=== PATIENT | female | born 1930 | race Caucasian/White ===

== ENCOUNTER → 2017-04-23 | Outpatient (CLI) | payer OTHER, MEDICARE ==
[~2017-04-23] MED LIST: AFLURIA 2045 MCG/0.4; AMPYRA10 MG PO; APAP650 PO; ASPIRIN EC81 M1 PO; BENTYL20 MG PO; CALTRATE-600 W1 EACH PO; CARAFATE 1 GM TA1 G1 GT; CENTRUM SILVER1 EAC1 PO; CORAL CALCIUM1 EAC4 PO; COZAAR 25 MG TA25 M2 PO; COZAAR 50 MG TA50 M1; COZAAR 50 MG TA50 M1 PO; CURCUMIN1 GM MC; CURCUMIN1 GM PO; DICLOFENAC; GLUCOSAMINE1000 MG; GOLYTELY4000 M1 GT; IBUPROFEN 200200 M1 PO; LOPRESSOR; LOVASTATIN 20 M20 MG PO; MIRALAX255 GM PO; NISOLDIPINE8.5 MG; OMEGA-3 + VITA200 ML; PAIN & FEVER325 MG PO; PERCOCET 5-3251 EACH; PNEUMOVAX25 MCG/0.5; PRAVASTATIN SOD20 MG PO; PRESERVISION A1 EAC1 PO; PRESERVISION A1 EAC2 PO; PRILOSEC 20 MG20 MG PO; PRILOSEC20 MG PO; PRILOSEC40 MG PO; TOPROL XL25 MG PO; TRAMADOL 50 MG50 MG PO; ULTRAM 50MG TAB50 MG PO; VITAMIN D31000 UNI2 PO; VITAMIN D35000 UNI1; VOLTAREN GEL 1100 G1; [UNRECOGNIZED DRUG - OTHER] PO
== END ==
LOC: PUL 13:06
DX: M48.061 Spinal stenosis, lumbar region without neurogenic claudication (principal); R09.02 Hypoxemia

== ENCOUNTER → 2017-04-30 | Outpatient (CLI) | payer OTHER, MEDICARE | LOC: MRI 10:05 | DX: M47.895 Other spondylosis, thoracolumbar region (principal); M48.061 Spinal stenosis, lumbar region without neurogenic claudication ==

== ENCOUNTER → 2017-09-23 | Outpatient (CLI) | payer OTHER, MEDICARE ==
[~2017-09-23] VITALS: Ht 137.2 cm; Wt 43.1 kg
[~2017-09-23] MED LIST changes: +CYMBALTA30 MG PO; +OMEPRAZOLE 20 M20 M1 PO
--- NOTE | ~2017-09-23 | P ---
[facility] [place] [address] PROCEDURE REPORT Name: CEZAR BOSTON Room #: REG [facility]#: [id number] Admission: 09/23/17 Attend Phys: Sesar Childress MD Discharge: Date of : [birth year] Report #: [id number] THIS REPORT FOR: //name// CC: Sesar Childress DATE OF SERVICE: 09/23/2017 BRIEF HISTORY: The patient is an 87-year-old woman who complains of dry mouth and also dysphagia. She says she cannot eat a lot of meat. She also reports she is having troubles with her dentures. PREOPERATIVE DIAGNOSES: Dysphagia and dry mouth. POSTOPERATIVE DIAGNOSES: 1. A large hiatus hernia. 2. 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 3. Tertiary contractions. MEDICATIONS: Deep sedation with propofol per anesthesia. SPECIMEN: None. ESTIMATED BLOOD LOSS: None. PROCEDURE: EGD and Savary dilation over a guidewire. FINDINGS: Prior to propofol sedation, the procedure of upper endoscopy was reviewed with the patient as well as potential risks and its complications. She indicates she understands and desires to proceed. DESCRIPTION OF PROCEDURE: With the patient in left lateral decubitus position, the BeMoi video endoscope was inserted in the cervical esophagus under direct vision without difficulty. Examination of this organ through its entire length revealed normal esophageal mucosa. However, it was noted she had a corkscrew esophagus. There was also significant foreshortened esophagus secondary to her large hiatus hernia. The gastroesophageal junction was identified about 25 cm. Beyond this was a large hiatus hernia that measured 10 cm with the diaphragmatic hiatus estimated to be at about 35 cm. The mucosa in the hernia was unremarkable. The scope was retroflexed easily in the hiatus hernia. No mass lesions were seen. Scope was advanced into the distal stomach, was examined on end view as well as retroflexed views. She has a prior history of ulcer disease, but no ulcers were seen on today's examination. Upon retroflexion, the hiatus hernia was seen. No other abnormalities were identified. The pylorus, duodenal bulb and postbulbar duodenal sweep were all inspected and noted to be [facility] [address] [place] [address] PROCEDURE REPORT Name: CEZAR BOSTON Room #: REG [facility].#: [id number] Admission: 09/23/17 Attend Phys: Sesar Childress MD Discharge: Date of : [birth year] Report #: [id number] within normal limits. At that point, the scope was slowly withdrawn and careful circumferential views confirmed the above finding. As we withdrew the scope, a guidewire was inserted through the biopsy channel and scope was withdrawn over the wire. Subsequently, she was dilated with passage of a 48-Armenian Savary dilator over the guidewire. There was no resistance. CONDITION OF THE PATIENT UPON DISCHARGE: Following procedure, the patient drowsy, aroused and conversant and will be discharged home when fully ambulatory. INSTRUCTIONS TO THE PATIENT AND FAMILY AT THE TIME OF DISCHARGE: The patient has had some dysphagia, an obstructing lesion or stricture was not seen. 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 I also might add that there are no ulcers, erosions or evidence of esophagitis or [place]as esophagus. At this point in life, she is not likely a candidate for surgical repair of her hiatus hernia. Would treat symptomatically at this point in time. She is to continue her PPI. Her dry mouth may be on the basis of medications. She will return to care of Dr. Sesar Cummings, return to see me as needed. If she has benefit from the dilation, that can be repeated in the future on an as needed basis. <ELECTRONICALLY SIGNED> By: Sesar Childress MD 09/23/17 1712 1120 1418 Sesar Childress MD /nt
== END | disposition home or self-care (01) ==
LOC: GI 09:27
DX: K44.9 Diaphragmatic hernia without obstruction or gangrene (principal); K22.4 Dyskinesia of esophagus; F32.9 Major depressive disorder, single episode, unspecified; E78.5 Hyperlipidemia, unspecified; K21.9 Gastro-esophageal reflux disease without esophagitis; Z90.710 Acquired absence of both cervix and uterus; Z98.890 Other specified postprocedural states; D64.9 Anemia, unspecified; M19.90 Unspecified osteoarthritis, unspecified site; Z86.73 Personal history of transient ischemic attack (TIA), and cerebral infarction without residual deficits
CPT/HCPCS: 62110; 62900

== ENCOUNTER 2018-04-20 12:19 | Inpatient (IN) | payer OTHER, MEDICARE ==
[~2018-04-20] VITALS: Ht 139.7 cm; Wt 46.3 kg
--- NOTE | ~2018-04-20 | EKG ---
[address] [address] ELECTROCARDIOGRAM REPORT Name: CEZAR BOSTON Room #: 210-P ADM IN M.R.#: [id number] Admission: 04/20/18 Attend Phys: Eduardo William MD Discharge: Date of : [birth year] Report #: [id number] THIS REPORT FOR: //name// 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 : 1930 Requested By: Eduardo William Order Number: [id number] MD: Parag Sanchez Measurements Intervals [place] Rate: 88 P: 50 ID: [id number] QRS: -32 QRSD: 83 T: -66 QT: 418 QTc: 506 Interpretive Statements Sinus rhythm Inferior infarct, age indeterminate Probable anteroseptal infarct, age indeterminate Prolonged QT interval Compared to ECG 04/20/2018 12:47:24 no significant change was found Electronically Signed On 04-21-2018 8:27:29 TYPE INSPECTOR by Parag Sanchez [email or web address] <ELECTRONICALLY SIGNED> By: Parag Sanchez MD, [facility] [id number] 1 1 Parag Sanchze MD, [facility] /EPI
--- NOTE | ~2018-04-20 | 2DMMODE ---
[facility] [address] [place] [address] 2 D/M-MODE ECHOCARDIOGRAM Name: DARVINCEZAR Room #: 210-P ADM IN M.R.#: [id number] Admission: 04/20/18 Attend Phys: Eduardo William MD Discharge: Date of : [birth year] Date of Service: 04/21/18 1243 Report #: [id number] THIS REPORT FOR: //name// APPROVED REPORT Study performed: 04/21/2018 11:39:00 EXAM: Comprehensive 2D, Doppler, and color-flow Echocardiogram Patient Location: In-Patient Room #: 210 Status: routine BSA: 1.32 HR: 69 bpm BP: 149/83 mmHg Other Information Study Quality: Good Indications Dyspnea bilateral PE's 2D Dimensions RVDd: 32.88 mm IVSd: 14.59 (7-11mm) LVOT Diam: 18.50 (18-24mm) LVDd: 26.60 mm PWd: 13.52 (7-11mm) Ascending Ao: 28.78 (22-36mm) LVDs: 19.52 (25-40mm) Aortic Root: 28.05 mm IVC: 12.00 mm Volumes Left Atrial Volume (Systole) Single Plane 4CH: 57.73 mL Single Plane 2CH: 45.04 mL LA ESV Index: 42.00 mL/m2 Aortic Valve AoV Peak Ariel.: 1.56 m/s AO Peak Gr.: 9.69 mmHg AI Vmax: 3.72 m/s AI Dodge: 2.51 m/s2 AI PHT: 429.17 ms Mitral Valve E/A Ratio: 1.3 MV Decel. Time: 155.02 ms [facility] [address] [place] [address] 2 D/M-MODE ECHOCARDIOGRAM Name: CEZAR BOSTON Room #: 210-P ADM IN [facility].#: [id number] Admission: 04/20/18 Attend Phys: Eduardo William MD Discharge: Date of : [birth year] Date of Service: 04/21/18 1243 Report #: [id number] MV E Max Ariel.: 0.82 m/s MV A Ariel.: 0.65 m/s MV PHT: 44.96 ms IVRT: 129.18 ms Pulmonary Valve PV Peak Ariel.: 0.63 m/s PV Peak Gr.: 1.62 mmHg Pulmonary Vein P Vein S: 0.62 m/s P Vein A: 0.48 m/s P Vein D: 0.45 m/s P Vein A Dur.: 101.5 msec P Vein S/D Ratio: 1.38 Tricuspid Valve TR Peak Ariel.: 3.28 m/s RAP Estimate: 5.00 mmHg TR Peak Gr.: 43.13 mmHg PA Pressure: 48.00 mmHg Left Ventricle The left ventricle is normal size. There is normal LV segmental wall motion. Moderate concentric left ventricular hypertrophy. The left ventricular systolic function is normal. The left ventricular ejection fraction is within the normal range. LVEF is 60-65%. Moderate diastolic dysfunction is present (pseudonormal filling). Right Ventricle The right ventricle is normal size. The right ventricular systolic function is normal. Atria Left atrium is mildly dilated. The right atrium size is normal. Aortic Valve Aortic valve is mildly calcified, trileaflet. Mild aortic regurgitation. There is no aortic valvular stenosis. Mitral Valve Mild mitral annular calcification. Mild mitral regurgitation. No evidence of mitral valve stenosis. Tricuspid Valve The tricuspid valve is normal in structure. Mild tricuspid regurgitation. PAP is estimated at 48 mmHg. [facility] [address] [place] [address] 2 D/M-MODE ECHOCARDIOGRAM Name: [place], [place] Room #: [facility] IN M.R.#: [id number] Admission: 04/20/18 Attend Phys: Eduardo William MD Discharge: Date of : [birth year] Date of Service: 04/21/18 1243 Report #: [id number] Pulmonic Valve The pulmonary valve is normal in structure. Mild pulmonic regurgitation. Great Vessels The aortic root is normal in size. IVC is normal in size and collapses >50% with inspiration. Pericardium There is no pericardial effusion. <Conclusion> The left ventricular systolic function is normal. There is normal LV segmental wall motion. EF 60-65% Moderate concentric left ventricular hypertrophy. Moderate diastolic dysfunction Aortic valve is mildly calcified, trileaflet. Mild aortic regurgitation, no stenosis Mild mitral annular calcification. Mild mitral regurgitation. Mild tricuspid regurgitation. Pulmonary artery pressure estimated at 48 mmHg. There is no pericardial effusion. <ELECTRONICALLY SIGNED> By: Parag Sanchez MD, FACC 04/21/18 1243 1243 1243 Parag Sanchez MD, FACC /INF
--- NOTE | ~2018-04-20 | EKG ---
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 : 1930 Requested By: Kentrell Lou Order Number: [id number] MD: Seven Dover Measurements Intervals [place] Rate: 87 P: -21 AK: 133 QRS: -36 QRSD: 92 T: -61 QT: 383 QTc: 461 Interpretive Statements Sinus rhythm LVH with secondary repolarization abnormality Inferior infarct, age indeterminate Probable anterior infarct, age indeterminate Baseline wander in lead(s) V1 Compared to ECG 07/17/2016 10:53:49 Left ventricular hypertrophy now present Early repolarization now present Myocardial infarct finding still present Electronically Signed On 04-20-2018 20:52:52 CELEBRITY MANAGER by Seven Dover [email or web address] <ELECTRONICALLY SIGNED> By: Seven Dover MD 04/20/182051 1247 46 Seven Dover MD /EPI
[2018-04-20 12:20] VITALS: BP 139/70
[2018-04-20 14:18] LABS: ABSOLUTE NEUTROPHILS 11.1 thou/uL (1.4-8.2); BASOPHILS 0.1 % (0.0-2.0); HEMATOCRIT 33.8 % (37.0-47.0); HEMOGLOBIN 11.3 gm/dL (12.0-15.0); LYMPHOCYTES 5.4 % (24.0-44.0); MCH 31.3 pg (26.0-34.0); MCHC 33.4 g/dL (28.0-37.0); MCV 93.9 fL (80.0-100.0); PLATELET COUNT 218 thou/uL (150-400); POLYS 85.5 % (36.0-66.0); RDW 12.6 % (10.5-14.5)
[2018-04-20 14:26] LABS: CALCIUM 9.2 mg/dL (8.5-10.1); CREATININE 1.2 mg/dL (0.6-1.0)
[2018-04-20 14:35] LABS: TROPONIN-I 0.18 ng/mL (<0.06)
[2018-04-20 16:49] LABS: APTT 29.6 Seconds (24.5-32.8); PROTIME 10.9 Seconds (9.3-11.4)
[2018-04-20 17:22] VITALS: BP 143/94
[2018-04-20 19:18] VITALS: BP 137/72
[2018-04-20 23:39] VITALS: BP 111/62
[2018-04-21 03:52] VITALS: BP 139/82
[2018-04-21 04:03] LABS: ABSOLUTE NEUTROPHILS 6.8 thou/uL (1.4-8.2); BASOPHILS 0.1 % (0.0-2.0); HEMATOCRIT 31.9 % (37.0-47.0); HEMOGLOBIN 10.5 gm/dL (12.0-15.0); LYMPHOCYTES 10.5 % (24.0-44.0); MCH 31.3 pg (26.0-34.0); MCHC 33.1 g/dL (28.0-37.0); MCV 94.6 fL (80.0-100.0); MONOCYTES 10.8 % (1.0-8.0); PLATELET COUNT 203 thou/uL (150-400); POLYS 78.6 % (36.0-66.0); RBC 3.37 mil/uL (4.20-5.00); RDW 12.5 % (10.5-14.5); WBC 8.7 thou/uL (4.0-11.0)
[2018-04-21 04:22] LABS: CALCIUM 8.5 mg/dL (8.5-10.1); CREATININE 1.3 mg/dL (0.6-1.0); MAGNESIUM 1.8 mg/dL (1.8-2.4); POTASSIUM 3.7 mmol/L (3.5-5.1); TROPONIN-I 0.14 ng/mL (<0.06)
[2018-04-21 08:17] VITALS: BP 149/83
[2018-04-21 12:03] VITALS: BP 131/71
[2018-04-21 14:59] VITALS: BP 146/81
[2018-04-21 19:28] VITALS: BP 135/81
[2018-04-21] MEDS ORDERED: ZYPREXA2.5 MG PO (21:08)
[2018-04-21 22:04] LABS: URINE BILIRUBIN NEGATIVE (Negative); URINE BLOOD NEGATIVE (Negative); URINE CLARITY CLEAR; URINE COLOR YELLOW; URINE GLUCOSE-RANDOM* NEGATIVE (Negative); URINE KETONES NEGATIVE (Negative); URINE LEUKOCYTES-REFLEX NEGATIVE (Negative); URINE NITRITE-REFLEX NEGATIVE (Negative); URINE PROTEIN (DIPSTICK) NEGATIVE (Negative); URINE SPECIFIC GRAVITY 1.015 (1.005-1.035); URINE UROBILINOGEN 0.2 E.U./dl (0.2-1.0)
[2018-04-22 03:29] LABS: HEMATOCRIT 29.1 % (37.0-47.0); HEMOGLOBIN 9.9 gm/dL (12.0-15.0); MCH 31.8 pg (26.0-34.0); MCHC 33.9 g/dL (28.0-37.0); MCV 93.9 fL (80.0-100.0); RBC 3.1 mil/uL (4.20-5.00); RDW 12.4 % (10.5-14.5); WBC 7.2 thou/uL (4.0-11.0)
[2018-04-22 03:41] LABS: CALCIUM 9.2 mg/dL (8.5-10.1); CREATININE 1.2 mg/dL (0.6-1.0); MAGNESIUM 1.7 mg/dL (1.8-2.4); POTASSIUM 3.3 mmol/L (3.5-5.1)
[2018-04-22 03:52] VITALS: BP 143/77
[2018-04-22 09:05] LABS: MAGNESIUM 1.8 mg/dL (1.8-2.4); POTASSIUM 4.1 mmol/L (3.5-5.1)
[2018-04-22 10:38] VITALS: BP 119/71
[2018-04-22 15:20] VITALS: BP 119/69
[2018-04-22 17:53] VITALS: BP 119/69
[2018-04-22 19:55] VITALS: BP 141/75
[2018-04-22 21:58] LABS: URINE BILIRUBIN NEGATIVE (Negative); URINE BLOOD NEGATIVE (Negative); URINE CLARITY CLEAR; URINE COLOR YELLOW; URINE GLUCOSE-RANDOM* NEGATIVE (Negative); URINE KETONES NEGATIVE (Negative); URINE LEUKOCYTES TRACE (Negative); URINE NITRITE NEGATIVE (Negative); URINE PROTEIN (DIPSTICK) TRACE (Negative); URINE UROBILINOGEN 0.2 E.U./dl (0.2-1.0)
[2018-04-23 04:08] LABS: HEMATOCRIT 30.1 % (37.0-47.0); HEMOGLOBIN 10.2 gm/dL (12.0-15.0); MCH 31.7 pg (26.0-34.0); MCHC 33.9 g/dL (28.0-37.0); MCV 93.7 fL (80.0-100.0); RBC 3.22 mil/uL (4.20-5.00); RDW 12.4 % (10.5-14.5); WBC 5.7 thou/uL (4.0-11.0)
[2018-04-23 04:15] LABS: CALCIUM 9.5 mg/dL (8.5-10.1); CREATININE 1.3 mg/dL (0.6-1.0); MAGNESIUM 1.8 mg/dL (1.8-2.4); POTASSIUM 4.2 mmol/L (3.5-5.1)
[2018-04-23 04:44] VITALS: BP 136/79
[2018-04-23 07:05] VITALS: BP 147/73
[2018-04-23] MEDS ORDERED: LASIX 20 MG TAB20 MG PO (08:16)
[2018-04-23] MEDS ORDERED: XARELTO15 MG PO (08:16)
[2018-04-23] MEDS ORDERED: XARELTO10 MG PO (08:16)
[2018-04-23 10:01] VITALS: BP 147/73
[2018-04-23] MEDS ORDERED: ENOXAPARIN60 MG/0.1 SUBQ (12:38)
[2018-04-23] MEDS ORDERED: COUMADIN 4 MG TA4 M1 PO (12:39)
[2018-04-23 12:40] VITALS: BP 147/73
== END 2018-04-23 11:31 | disposition home health service (06) | DRG 175 ==
LOC: ER 12:19 → 2N 15:49 → EROBS 15:49 → 2N 15:49
PROVIDERS: Internal Medicine; Nurse Practitioner Acute Care; Physician Assistant
DX: I26.99 Other pulmonary embolism without acute cor pulmonale (principal); J96.01 Acute respiratory failure with hypoxia; I50.31 Acute diastolic (congestive) heart failure; N18.4 Chronic kidney disease, stage 4 (severe); I13.0 Hypertensive heart and chronic kidney disease with heart failure and stage 1 through stage 4 chronic kidney disease, or unspecified chronic kidney disease; D64.9 Anemia, unspecified; I27.20 Pulmonary hypertension, unspecified; Z96.622 Presence of left artificial elbow joint; Z96.651 Presence of right artificial knee joint; M19.90 Unspecified osteoarthritis, unspecified site; E78.5 Hyperlipidemia, unspecified; K21.9 Gastro-esophageal reflux disease without esophagitis; F32.9 Major depressive disorder, single episode, unspecified; M62.84 Sarcopenia; E55.9 Vitamin D deficiency, unspecified; Z79.01 Long term (current) use of anticoagulants; Z90.710 Acquired absence of both cervix and uterus; Z98.42 Cataract extraction status, left eye; Z98.41 Cataract extraction status, right eye; Z86.73 Personal history of transient ischemic attack (TIA), and cerebral infarction without residual deficits; Z86.010 Personal history of colon polyps; Z88.6 Allergy status to analgesic agent; Z88.8 Allergy status to other drugs, medicaments and biological substances; Z79.899 Other long term (current) drug therapy
CPT/HCPCS: 10081

== ENCOUNTER 2018-05-04 14:09 | Emergency (ER) | payer OTHER, MEDICARE ==
[~2018-05-04] VITALS: Ht 137.2 cm; Wt 42.6 kg
[~2018-05-04 14:09] MED LIST changes: +COUMADIN 4 MG TA4 M1 PO; +ENOXAPARIN60 MG/0.1 SUBQ; +LASIX 20 MG TAB20 MG PO; +XARELTO10 MG PO; +XARELTO15 MG PO; +ZYPREXA2.5 MG PO
[2018-05-04] MEDS ORDERED: VITAMIN D2000 UNIT PO (14:32)
[2018-05-04] MEDS ORDERED: MIRALAX17 GM PO (14:33)
[2018-05-04] MEDS ORDERED: SYSTANE 0.3-0.415 ML OPHTHALMIC (14:35)
[2018-05-04] MEDS ORDERED: ASPIR 8181 MG PO (14:35)
[2018-05-04] MEDS ORDERED: COUMADIN 3 MG TA3 M1 PO (14:38)
[2018-05-04] MEDS ORDERED: GAS-X125 MG PO (14:39)
[2018-05-04] MEDS ORDERED: TUMS PO (14:39)
[2018-05-04 14:52] LABS: ABSOLUTE NEUTROPHILS 13.5 thou/uL (1.4-8.2); BASOPHILS 0.1 % (0.0-2.0); HEMATOCRIT 34.8 % (37.0-47.0); HEMOGLOBIN 11.5 gm/dL (12.0-15.0); MCH 30.9 pg (26.0-34.0); MCHC 33.2 g/dL (28.0-37.0); MCV 93.2 fL (80.0-100.0); MONOCYTES 5.9 % (1.0-8.0); PLATELET COUNT 389 thou/uL (150-400); RBC 3.73 mil/uL (4.20-5.00); RDW 12.3 % (10.5-14.5); WBC 15.5 thou/uL (4.0-11.0)
[2018-05-04 14:58] LABS: CALCIUM 10.3 mg/dL (8.5-10.1); CREATININE 1.5 mg/dL (0.6-1.0); POTASSIUM 4.2 mmol/L (3.5-5.1)
[2018-05-04 15:04] LABS: ALBUMIN 3.4 g/dL (3.4-5.0); TOTAL BILIRUBIN 0.3 mg/dL (<0.1-1.0); TOTAL PROTEIN 7.3 g/dL (6.4-8.2)
[2018-05-04 15:05] LABS: PROTIME 56.4 Seconds (9.3-11.4)
[2018-05-04 15:07] LABS: INR 5.5
[2018-05-04 15:17] LABS: URINE BILIRUBIN NEGATIVE (Negative); URINE BLOOD 3+ (Negative); URINE CLARITY CLOUDY; URINE COLOR RED; URINE GLUCOSE-RANDOM* NEGATIVE (Negative); URINE KETONES TRACE (Negative); URINE LEUKOCYTES-REFLEX 3+ (Negative); URINE NITRITE-REFLEX NEGATIVE (Negative); URINE PROTEIN (DIPSTICK) 2+ (Negative); URINE UROBILINOGEN 0.2 E.U./dl (0.2-1.0)
[2018-05-04 15:21] LABS: CASTS None Seen /LPF (None Seen); SQUAMOUS None Seen /LPF (0-3); URINE WBC-REFLEX >25 Many /HPF (0-5)
[2018-05-04 15:22] LABS: BACTERIA-REFLEX 1-9 Few /HPF (None Seen); CRYSTALS None Seen /LPF (None Seen); URINE RBC >20 Many /HPF (0-2)
[2018-05-04] MEDS ORDERED: CEFUROXIME250 MG PO (15:39)
[2018-05-04 16:09] VITALS: BP 136/75
== END 2018-05-04 16:18 | disposition home or self-care (01) ==
LOC: ER 14:09
PROVIDERS: Emergency Medicine
DX: N30.91 Cystitis, unspecified with hematuria (principal); M19.011 Primary osteoarthritis, right shoulder; M19.012 Primary osteoarthritis, left shoulder; E78.5 Hyperlipidemia, unspecified; K21.9 Gastro-esophageal reflux disease without esophagitis; F32.9 Major depressive disorder, single episode, unspecified; Z88.6 Allergy status to analgesic agent; Z88.8 Allergy status to other drugs, medicaments and biological substances; Z88.5 Allergy status to narcotic agent; Z96.622 Presence of left artificial elbow joint; Z90.710 Acquired absence of both cervix and uterus; Z86.2 Personal history of diseases of the blood and blood-forming organs and certain disorders involving the immune mechanism; Z96.651 Presence of right artificial knee joint; Z90.89 Acquired absence of other organs; Z86.73 Personal history of transient ischemic attack (TIA), and cerebral infarction without residual deficits